=== PATIENT | male | born 1975 | race Caucasian/White ===

== ENCOUNTER → 2017-01-29 | Outpatient (CLI) | payer OTHER ==
[2017-01-29 17:09] LABS: RED BLOOD COUNT 4.98 M/UL (4.20-5.50)
[2017-01-29 17:28] LABS: BUN/CREATININE RATIO 12 (0-10)
== END ==
LOC: LAB 16:42
PROVIDERS: Dermatology
DX: L40.0 Psoriasis vulgaris (principal); L40.1 Generalized pustular psoriasis
CPT/HCPCS: 36415; 80053; 85027; 87390